=== PATIENT | female | born 1955 | race Caucasian/White ===

== ENCOUNTER 2016-12-19 05:59 | Emergency (ER) | payer BC ==
[2016-12-19] MEDS ORDERED: FENTANYL 100 MCG/2 ML VIAL IV ONE (06:37)
[2016-12-19] MEDS ORDERED: ONDANSETRON HCL 4 MG/2 ML VIAL IV ONE (06:37)
--- NOTE | 2016-12-19 06:39 | EDPRACDOC ---
- General Information Information Source: Patient, Family Mode Of Arrival: Car - History of Present Illness Onset: 299 Pain Location: Reports: Left, Flank Pain Radiates To: Reports: None Pain Caused By: Reports: Spontaneous Circumstances: Reports: Unknown Relevant History: Denies: Abdominal aneurysm, Arthiritis, Cancer, Chronic back pain, Gallbladder disease, Pancreatitis, Pyelonephritis, Urolithiasis, UTI, None , IA, O Currently ?: No Pain Severity: Reports: Moderate Pain Quality: Reports: Aching, Burning Worsened By: Reports: Nothing Associated Signs and Symptoms: Reports: Abdominal Pain, Nausea, Vomiting (X1-2) . Denies: Dysuria, Hematuria <Evi Reyes - Last Filed: 12/19/16 07:55> <Ze Hernandez - Last Filed: 12/19/16 11:02> - General Information Stated Complaint: BACK PAIN AND LEFT LOWER ABD PAIN Time Seen by Provider: 12/19/16 06:20 Home Medications: Home Medications Bupropion HCl [Bupropion HCl ER] 150 mg PO BID 09/16/14 Colestipol Hydrochloride [Colestid] 1 gm PO DAILY 09/16/14 Cyanocobalamin (Vitamin B-12) [Cyanocobalamin Injection] 1,000 mcg IJ .MONTHLY 09/16/14 Diphenoxylate HCl/Atropine [Diphenoxylate-Atrop 2.5-0.025] 1 - 2 each PO DAILY PRN 09/16/14 Ergocalciferol (Vitamin D2) [Vitamin D] 50,000 units PO MOWEFR 09/16/14 Fexofenadine HCl [Mary] 180 mg PO DAILY 09/16/14 Hyoscyamine Sulfate 0.125 mg PO QID 09/16/14 Omeprazole [Prilosec] 20 mg PO DAILY 09/16/14 Sumatriptan Succinate 50 mg PO DIR PRN 09/16/14 Ciprofloxacin HCl [Cipro] 500 mg PO BID #10 tab 12/19/16 Denosumab [Prolia] 60 mg SQ .Q6MO 12/19/16 Estradiol [Climara] 0.05 mg TOP WESA 12/19/16 Losartan Potassium [Cozaar] 50 mg PO DAILY 12/19/16 Ondansetron HCl [Zofran] 4 mg PO TID PRN #14 tablet 12/19/16 Oxycodone Immediate Release [Oxycodone Immediate Release (OxyIR)] 5 - 15 mg PO Q4H PRN #30 tab 12/19/16 Rosuvastatin Calcium [Crestor] 5 mg PO DAILY 12/19/16 Allergies/Adverse Reactions: Allergies Allergy/AdvReac Type Severity Reaction Status Date / Time promethazine HCl Allergy Unknown Rash-Genera Verified 12/19/16 07:40 [From Phenergan] lized amoxicillin trihydrate Allergy Difficulty Verified 12/19/16 07:40 [From Augmentin] Breathing potassium clavulanate Allergy Difficulty Verified 12/19/16 07:40 [From Augmentin] Breathing ED Past Medical History - History Reviewed Yes Nurses notes reviewed and agree except as marked - Patient Medical History Cardiac History: Reports: Hypertension Respiratory History: Denies: Pneumonia Psychological History: Reports: Depression 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 Denies: Cancer Surgical History: Reports: Hysterectomy (PARTIAL) - Family Medical History Reports: Hypertension (FATHER, SISTER, BROTHER), Cancer (MOTHER- COLON). Denies : Diabetes, Stroke, Cardiac Disorders - Social Medical History ETOH: None Substance Abuse: None Lives With: Family Lives In: Home <Evi Reyes N - Last Filed: 12/19/16 07:55> EDM Review of Systems - Review of Systems ROS Negative Except as Marked: Yes All systems reviewed and were negative except as marked <Evi Reyes N - Last Filed: 12/19/16 07:55> - Physical Exam Constitutional: Alert, Distress (PAIN), Restless Oriented to: Time, Person, Place Last recorded Vital Signs: Oxygen Pulse Oxygen Saturation O2 Device Oxygen Flow Rate Fraction of Inspired Oxygen ( FIO2) - HEENT Head: Normal ( normocephalic) Eye Exam: Normal (PERRL, EOMI, Sclera white) Oropharynx: Normal (Pharynx:Moist without exudate,Gums-no swelling) Nose: No Symptoms Reported (septum midline) Neck: Normal (FROM, trachea at midline) - GI Auscultation: Normal Palpation: Normal. negative: Enlarged liver, Enlarged spleen Tenderness: Mild, LLQ. negative: Guarding, Rebound, Rigidity Boyce's Sign: Negative - Musculoskeletal Back: Normal. negative: CVA Tenderness, Thoracic TTP, Lumbar TTP Extremities: Normal, Pedal Pulse (DORSALIS PEDIS BILATERAL LOWER EXTREMITIES 2+) - Integumentary Skin: Cool, Clammy - Neurologic Memory Impaired: Normal Motor Function: Normal Mood Description: Anxious Thought: Coherent <Evi Reyes N - Last Filed: 12/19/16 07:55> - Physical Exam Last recorded Vital Signs: Last Vital Signs Temp 96.6 F L 12/19/16 05:59 Pulse 81 12/19/16 05:59 Resp 18 12/19/16 05:59 BP 190/84 H 12/19/16 05:59 Pulse Ox 100 12/19/16 05:59 Oxygen Pulse Oxygen Saturation 100 O2 Device Room Air Oxygen Flow Rate Fraction of Inspired Oxygen ( FIO2) <Ze Hernandez - Last Filed: 12/19/16 11:02> - Differential Diagnosis AAA, Musculoskeletal pain, Pyelonephritis, Urinary obstruction, Urolithiasis, Urinary tract infection - Results 12/19/16 06:25 12/19/16 06:25 - EKG EKG #1 EKG Time: 06:56 -: Yes EKG interpreted by me Rate: bpm: 81 [place]: Normal Rhythm: NSR Block: None Hypertrophy: None ST: Normal <Evi Reyes N - Last Filed: 12/19/16 07:55> - Results 12/19/16 06:25 12/19/16 06:25 WBC 13.4 xk/uL (3.8-10.8) H 12/19/16 06:25 RBC 5.14 xM/uL (4.20-5.40) 12/19/16 06:25 Hgb 14.8 g/dL (12.0-16.0) 12/19/16 06:25 Hct 43.4 % (36-47) 12/19/16 06:25 MCV 84 fL (81-99) 12/19/16 06:25 MCH 28.9 pg (27-32) 12/19/16 06:25 MCHC 34.2 g/dl (33-36) 12/19/16 06:25 RDW 12.7 % (11.5-14.5) 12/19/16 06:25 Plt Count 229 xk/uL (130-400) 12/19/16 06:25 MPV 8.7 fL (7.4-10.4) 12/19/16 06:25 Neut % (Auto) 81.9 % (45-76) H 12/19/16 06:25 Lymph % (Auto) 12.2 % (17-44) L 12/19/16 06:25 [place] % (Auto) 5.0 % (3-10) 12/19/16 06:25 Eos % (Auto) 0.4 % (0-5) 12/19/16 06:25 Baso % (Auto) 0.5 % (0-2) 12/19/16 06:25 Absolute Neuts (auto) 10.85 xk/uL (1.7-8.2) H 12/19/16 06:25 Absolute Lymphs (auto) 1.61 xk/uL (0.65-4.75) 12/19/16 06:25 Sodium 138 mEq/L (137-146) 12/19/16 06:25 Potassium 4.0 mEq/L (3.5-5.1) 12/19/16 06:25 Chloride 101 mEq/L (98-107) 12/19/16 06:25 Carbon Dioxide 24 mMOL/L (22-33) 12/19/16 06:25 Anion Gap 17 mEq/L (8-16) H 12/19/16 06:25 BUN 18 MG/DL (7-17) H 12/19/16 06:25 Creatinine 1.10 MG/DL (0.52-1.04) H 12/19/16 06:25 Estimated GFR (MDRD) 50 mL/min (>=60) L 12/19/16 06:25 Glucose 129 MG/DL (70-99) H 12/19/16 06:25 Calculated Osmolality 270 MOs/Kg (270-290) 12/19/16 06:25 Lactic Acid 3.5 mEq/L (0.7-2.1) H 12/19/16 06:25 Calcium 8.8 MG/DL (8.4-10.2) 12/19/16 06:25 Total Bilirubin 1.3 MG/DL (0.2-1.3) 12/19/16 06:25 AST 25 IU/L (14-36) 12/19/16 06:25 ALT 31 IU/L (9-52) 12/19/16 06:25 Alkaline Phosphatase 76 IU/L (55-165) 12/19/16 06:25 Total Protein 7.2 G/DL (6.3-8.2) 12/19/16 06:25 Albumin 4.0 G/DL (3.5-5.0) 12/19/16 06:25 Urine Color Yellow 12/19/16 06:13 Urine Clarity Cldy 12/19/16 06:13 Urine pH 7.0 (5.0-8.0) 12/19/16 06:13 Ur Specific [place] 1.010 (1.003-1.035) 12/19/16 06:13 Urine Protein Neg (NEG/TRACE) 12/19/16 06:13 Urine Glucose (UA) Neg (NEGATIVE) 12/19/16 06:13 Urine Ketones Neg (NEGATIVE) 12/19/16 06:13 Urine Occult Blood 1+ (NEG/TRACE) H 12/19/16 06:13 Urine Nitrite Neg (NEGATIVE) 12/19/16 06:13 Urine Bilirubin Neg (NEGATIVE) 12/19/16 06:13 Urine Urobilinogen <2.0 MG/DL (0-1) 12/19/16 06:13 Ur Leukocyte Esterase Neg (NEGATIVE) 12/19/16 06:13 Urine RBC 5-10 (0-5) H 12/19/16 06:13 Urine WBC 0-2 (0-5) 12/19/16 06:13 Ur Epithelial Cells 3+ 12/19/16 06:13 Urine Bacteria 2+ (NEG/FEW) H 12/19/16 06:13 Urine Mucus Sm amt (NEG/OCC) 12/19/16 06:13 Lab Results 12/19/16 12/19/16 12/19/16 06:25 06:25 06:25 WBC 13.4 H RBC 5.14 Hgb 14.8 Hct 43.4 MCV 84 MCH 28.9 MCHC 34.2 RDW 12.7 Plt Count 229 MPV 8.7 Neut % (Auto) 81.9 H Lymph % (Auto) 12.2 L [place] % (Auto) 5.0 Eos % (Auto) 0.4 Baso % (Auto) 0.5 Absolute Neuts (auto) 10.85 H Absolute Lymphs (auto) 1.61 Sodium 138 Potassium 4.0 Chloride 101 Carbon Dioxide 24 Anion Gap 17 H BUN 18 H Creatinine 1.10 H Estimated GFR (MDRD) 50 L Glucose 129 H Calculated Osmolality 270 Lactic Acid 3.5 H Calcium 8.8 Total Bilirubin 1.3 AST 25 ALT 31 Alkaline Phosphatase 76 Total Protein 7.2 Albumin 4.0 Urine Color Urine Clarity Urine pH Ur Specific [place] Urine Protein Urine Glucose (UA) Urine Ketones Urine Occult Blood Urine Nitrite Urine Bilirubin Urine Urobilinogen Ur Leukocyte Esterase Urine RBC Urine WBC Ur Epithelial Cells Urine Bacteria Urine Mucus 12/19/16 06:13 WBC RBC Hgb Hct MCV MCH MCHC RDW Plt Count MPV Neut % (Auto) Lymph % (Auto) [place] % (Auto) Eos % (Auto) Baso % (Auto) Absolute Neuts (auto) Absolute Lymphs (auto) Sodium Potassium Chloride Carbon Dioxide Anion Gap BUN Creatinine Estimated GFR (MDRD) Glucose Calculated Osmolality Lactic Acid Calcium Total Bilirubin AST ALT Alkaline Phosphatase Total Protein Albumin Urine Color Yellow Urine Clarity Cldy Urine pH 7.0 Ur Specific [place] 1.010 Urine Protein Neg Urine Glucose (UA) Neg Urine Ketones Neg Urine Occult Blood 1+ H Urine Nitrite Neg Urine Bilirubin Neg Urine Urobilinogen <2.0 Ur Leukocyte Esterase Neg Urine RBC 5-10 H Urine WBC 0-2 Ur Epithelial Cells 3+ Urine Bacteria 2+ H Urine Mucus Sm amt <Ze Hernandez - Last Filed: 12/19/16 11:02> - Departure Disposition: [facility] Education/Counseling Given To: Patient, Family Member Education/Counseling Given Regarding: Diagnosis, Treatment <Evi Reyes - Last Filed: 12/19/16 07:55> Decision Time to Discharge: 11:02 - Departure Yes I personally saw and evaluated the patient. <Ze Hernandez - Last Filed: 12/19/16 11:02> - Departure Condition: Stable Final Diagnosis: LEFT 3 MM UVJ URETEROLITHIASIS, Ureterolithiasis, Nephrolithiasis Hydronephrosis Qualifiers: Hydronephrosis type: with ureteral calculous obstruction Qualified Code(s): N13.2 - Hydronephrosis with renal and ureteral calculous obstruction Instructions: Kidney Stones (ED) Referrals: Jani Vazquez MD [Staff Physician] - 1-2 days Prescriptions: New Ondansetron HCl [Zofran] 4 mg PO TID PRN #14 tablet PRN Reason: NAUSEA OR VOMITING Oxycodone Immediate Release [Oxycodone Immediate Release (OxyIR)] 5 - 15 mg PO Q4H PRN #30 tab PRN Reason: Pain Ciprofloxacin HCl [Cipro] 500 mg PO BID #10 tab No Action Ergocalciferol (Vitamin D2) [Vitamin D] 50,000 units PO MOWEFR Diphenoxylate HCl/Atropine [Diphenoxylate-Atrop 2.5-0.025] 1 - 2 each PO DAILY PRN PRN Reason: LOOSE STOOL Omeprazole [Prilosec] 20 mg PO DAILY Fexofenadine HCl [Mary] 180 mg PO DAILY Hyoscyamine Sulfate 0.125 mg PO QID Colestipol Hydrochloride [Colestid] 1 gm PO DAILY Cyanocobalamin (Vitamin B-12) [Cyanocobalamin Injection] 1,000 mcg IJ .MONTHLY Bupropion HCl [Bupropion HCl ER] 150 mg PO BID Sumatriptan Succinate 50 mg PO DIR PRN PRN Reason: Headache Losartan Potassium [Cozaar] 50 mg PO DAILY Estradiol [Climara] 0.05 mg TOP WESA Rosuvastatin Calcium [Crestor] 5 mg PO DAILY Denosumab [Prolia] 60 mg SQ .Q6MO Additional Instructions: CALL DR VAZQUEZ FOR APPT TOMORROW. DO NOT EAT OR DRINK AFTER MIDNIGHT TONIGHT. DO NOT TAKE ASPIRIN NSAIDS IBUPROFEN NAPROSYN. RETURN FOR FEVER, UNCONTROLLED PAIN OR VOMITING.
[2016-12-19 06:42] LABS: AUTOMATED BASOPHIL 0.5 % (0-2); AUTOMATED EOSINOPHIL 0.4 % (0-5); AUTOMATED LYMPH 12.2 % (17-44); AUTOMATED NEUTROPHIL 81.9 % (45-76); MPV 8.7 fL (7.4-10.4)
--- NOTE | 2016-12-19 06:42 | DIRPT ---
CLINICAL DATA: Acute onset of generalized abdominal pain, nausea, vomiting and shortness of breath. Initial encounter. EXAM: CHEST 2 VIEW COMPARISON: None. FINDINGS: The lungs are well-aerated. Mild right basilar atelectasis or scarring is noted. There is no evidence of pleural effusion or pneumothorax. The heart is normal in size; the mediastinal contour is within normal limits. No acute osseous abnormalities are seen. IMPRESSION: Mild right basilar atelectasis or scarring noted. Lungs otherwise clear. Electronically Signed By: Slim Ndiaye M.D. On: 12/19/2016 06:40
[2016-12-19 06:49] LABS: BLOOD UREA NITROGEN 18 MG/DL (7-17); CALCIUM 8.8 MG/DL (8.4-10.2); CALCULATED OSMOLALITY 270 MOs/Kg (270-290); CHLORIDE 101 mEq/L (98-107); GLUCOSE 129 MG/DL (70-99); SODIUM LEVEL 138 mEq/L (137-146); TOTAL PROTEIN 7.2 G/DL (6.3-8.2)
[2016-12-19 06:51] VITALS: BMI 24.7
[2016-12-19] MEDS ORDERED: MORPHINE 4 MG/ML INJECTION IV ONE (07:15)
--- NOTE | 2016-12-19 07:27 | DIRPT ---
CLINICAL DATA: Left flank pain beginning this morning with nausea and vomiting. EXAM: CT ABDOMEN AND PELVIS WITHOUT CONTRAST TECHNIQUE: Multidetector CT imaging of the abdomen and pelvis was performed following the standard protocol without IV contrast. COMPARISON: None. FINDINGS: Minimal atelectasis is noted in the lung bases. No liver lesion is identified, although the hepatic dome was slightly incompletely imaged. The gallbladder is surgically absent. No significant biliary dilatation is seen. The spleen, adrenal glands, and pancreas have an unremarkable unenhanced appearance. There are numerous small calculi in the lower pole of the left kidney measuring up to 6 mm in size. There is mild left hydronephrosis and hydroureter due to a 3 mm stone at the ureterovesical junction. There is left perinephric fluid and stranding which extends inferiorly in the retroperitoneum along the predominantly proximal aspect of the ureter. No right-sided renal calculi, right ureteral calculi, or right hydroureteronephrosis is seen. There is a small sliding hiatal hernia. There is no evidence of bowel obstruction or inflammation. The appendix is unremarkable. The bladder is unremarkable. The uterus is absent. Ovaries are unremarkable. No pelvic mass is seen. No intraperitoneal free fluid or enlarged lymph nodes are identified. An L1 vertebral compression fracture is noted status post augmentation. Severe lower lumbar facet arthrosis is noted. IMPRESSION: 1. Obstructing 3 mm stone at the left UVJ with mild hydroureteronephrosis. Left perinephric stranding and small volume fluid are compatible with forniceal rupture. 2. Numerous small left lower pole renal calculi. 3. Small sliding hiatal hernia. Electronically Signed By: Francisco Dunne M.D. On: 12/19/2016 07:24
[2016-12-19] MEDS ORDERED: NS 1,000 ML IV ONE (07:50)
[2016-12-19] MEDS ORDERED: OXYCODONE HCL 5 MG TABLET PO ONE (08:00)
[2016-12-19 10:24] LABS: LEUKOCYTES/URINE NEG (NEGATIVE); NITRITE/URINE NEG (NEGATIVE); URINE OCCULT BLOOD 1+ (NEG/TRACE); WBC/URINE 0-2 (0-5)
[2016-12-19] MEDS ORDERED: OXYCODONE HCL 5 MG TABLET PO STA (11:01)
[2016-12-19] MEDS ORDERED: CIPROFLOXACIN HCL 500 MG TAB PO STA (11:01)
[2016-12-19 11:26] VITALS: BP 166/75; PULSE 85; TEMP 98.2
== END 2016-12-19 11:25 | disposition home or self-care (01) ==
LOC: ED 05:59
DX: N20.2 Calculus of kidney with calculus of ureter (principal); N20.0 Calculus of kidney
CPT/HCPCS: 36415; 71020; 74176; 80053; 81001; 83605; 85025; 87040; 87086; 93005; 96361; 96374; 96375; 99283; J2270; J2405; J3010; J3490